=== PATIENT | female | born 2000 | race Caucasian/White ===

== ENCOUNTER 2019-01-19 20:19 | Emergency (ER) | payer OTHER ==
[~2019-01-19] VITALS: Ht 162.6 cm; Wt 75.3 kg
[2019-01-19 20:30] VITALS: BP 122/70; Ht 162.6 cm; Wt 75.3 kg
== END 2019-01-19 22:41 | disposition home or self-care (01) ==
LOC: ED 20:19
DX: J18.9 Pneumonia, unspecified organism (principal); Z88.6 Allergy status to analgesic agent; Z88.5 Allergy status to narcotic agent
CPT/HCPCS: J7613